=== PATIENT | female | born 1985 | race Hispanic/Latino ===

== ENCOUNTER 2018-03-26 21:25 | Emergency (ER) | payer OTHER ==
[~2018-03-26] VITALS: Ht 152.4 cm; Wt 66.3 kg
[2018-03-26 22:07] LABS: URINE BILIRUBIN - DIPSTICK NEGATIVE (NEGATIVE); URINE BLOOD DIPSTICK NEGATIVE (NEGATIVE); URINE COLOR YELLOW; URINE GLUCOSE - DIPSTICK NEGATIVE (NEGATIVE); URINE KETONE NEGATIVE (NEGATIVE); URINE LEUK ESTERASE NEGATIVE (NEGATIVE); URINE NITRITE - DIPSTICK NEGATIVE (Negative); URINE PH 7.5 (4.5-8.0); URINE PROTEIN - DIPSTICK NEGATIVE (NEG-TRACE); URINE UROBILINOGEN - DIPSTICK 0.2 E.U./dL (0.2)
[2018-03-26 22:09] LABS: URINE CLARITY CLEAR
[2018-03-26 22:20] LABS: HEMOGLOBIN 9.6 g/dl (12.0-16.0); IMMATURE GRANULOCYTES 0.5 % (0.0-5.0); MEAN CELL VOLUME 71.4 fL CALC (80.0-100.0); MEAN CORPUSCULAR HGB 21.4 pG CALC (26.0-32.0); NEUT# 4.48 thou/uL (2.00-7.15); RED BLOOD COUNT 4.48 mill/uL (4.20-5.60); RED CELL DISTRI WIDTH 19.4 % (11.5-15.5)
[2018-03-26 23:08] LABS: ALBUMIN 3.8 g/dL (3.2-5.0); ALKALINE PHOSPHATASE 65 u/l (38-126); AMYLASE 71 u/l (30-110); ANION GAP 13 (6-22 (CALC)); BUN 9 mg/dL (7-17); BUN/CREATININE RATIO 21 (12-20 (CALC)); CARBON DIOXIDE 25 mmol/l (22-30); CHLORIDE 105 mmol/l (95-108); CREATININE 0.4 mg/dL (0.5-1.0); GFR > 60 ML/MIN (>=60 (CALC)); GFR FOR AFR.AMER. > 60 ML/MIN (>=60 (CALC)); LIPASE 58 u/l (23-300); POTASSIUM 4.1 mmol/l (3.5-5.1); SGOT/AST 17 u/l (14-36); SODIUM 140 mmol/l (137-146); TOTAL PROTEIN 6.9 g/dL (6.3-8.2)
[2018-03-26] MEDS ORDERED: FEOSOL45 MG PO (23:45)
[2018-03-26] MEDS ORDERED: ZOFRAN ODT4 MG PO (23:45)
[2018-03-26 23:48] LABS: BETA-HCG, QUANT(RESULT NUMBER) 23072 mIU/mL
[2018-03-27 00:10] VITALS: BP 121/68
== END 2018-03-27 00:10 | disposition home or self-care (01) ==
LOC: ED 21:25
PROVIDERS: Emergency Medicine
DX: O99.011 Anemia complicating pregnancy, first trimester (principal); D64.9 Anemia, unspecified; Z3A.01 Less than 8 weeks gestation of pregnancy; R53.1 Weakness; R10.13 Epigastric pain; R11.0 Nausea

== ENCOUNTER 2018-07-13 23:09 | Emergency (ER) | payer OTHER ==
[~2018-07-13] VITALS: Ht 152.4 cm; Wt 64.0 kg
[~2018-07-13 23:09] MED LIST: FEOSOL45 MG PO; ZOFRAN ODT4 MG PO
[2018-07-14] MEDS ORDERED: ATIVAN0.5 MG PO (00:07)
[2018-07-14 00:37] VITALS: BP 105/70
== END 2018-07-14 00:40 | disposition home or self-care (01) ==
LOC: ED 23:09
DX: F41.9 Anxiety disorder, unspecified (principal); F32.9 Major depressive disorder, single episode, unspecified; Z63.4 Disappearance and death of family member
CPT/HCPCS: J2060

== ENCOUNTER 2019-07-13 | Emergency (ER) | payer OTHER ==
[~2019-07-13] MED LIST changes: +ATIVAN0.5 MG PO
[2019-07-13] MEDS ORDERED: FERRAPLUS 90 PO (09:57)
[2019-07-13 10:24] LABS: HEMATOCRIT 32.5 % (37.0-47.0); HEMOGLOBIN 10.1 g/dl (12.0-16.0); IMMATURE GRANULOCYTES 1.1 % (0.0-5.0); MEAN CORPUSCULAR HGB 24.8 pG CALC (26.0-32.0); MEAN CORPUSCULAR HGB CONC 31.1 g/L CALC (32.0-36.0); NEUT# 4.85 thou/uL (2.00-7.15); RED BLOOD COUNT 4.07 mill/uL (4.20-5.60); RED CELL DISTRI WIDTH 15.5 % (11.5-15.5)
[2019-07-13 10:26] LABS: MEAN CELL VOLUME 79.9 fL CALC (80.0-100.0)
[2019-07-13 10:49] LABS: ALKALINE PHOSPHATASE 87 u/l (38-126); ANION GAP 15 (6-22 (CALC)); BUN 9 mg/dL (7-17); BUN/CREATININE RATIO 20 (12-20 (CALC)); CARBON DIOXIDE 25 mmol/l (22-30); CHLORIDE 104 mmol/l (95-108); CREATININE 0.5 mg/dL (0.5-1.0); ETHYL ALCOHOL 0 mg/dl (0-30); GFR > 60 ML/MIN (>=60 (CALC)); GFR FOR AFR.AMER. > 60 ML/MIN (>=60 (CALC)); LIPASE 48 u/l (23-300); MAGNESIUM 1.9 mg/dL (1.6-2.3); POTASSIUM 3.8 mmol/l (3.5-5.1); SODIUM 140 mmol/l (137-146)
[2019-07-13 10:55] LABS: ALBUMIN 4.6 g/dL (3.2-5.0); BILIRUBIN, TOTAL 0.2 mg/dL (0.0-1.4); SGOT/AST 31 u/l (14-36); TOTAL PROTEIN 8.3 g/dL (6.3-8.2)
[2019-07-13 10:58] LABS: URINE BILIRUBIN - DIPSTICK NEGATIVE (NEGATIVE); URINE BLOOD DIPSTICK NEGATIVE (NEGATIVE); URINE COLOR YELLOW; URINE GLUCOSE - DIPSTICK NEGATIVE (NEGATIVE); URINE KETONE NEGATIVE (NEGATIVE); URINE LEUK ESTERASE NEGATIVE (NEGATIVE); URINE NITRITE - DIPSTICK NEGATIVE (Negative); URINE PH 7.5 (4.5-8.0); URINE PROTEIN - DIPSTICK NEGATIVE (NEG-TRACE); URINE SPECIFIC GRAVITY 1.015; URINE UROBILINOGEN - DIPSTICK 0.2 E.U./dL (0.2)
[2019-07-13 10:59] LABS: BARBITURATES NEGATIVE (NEGATIVE); COCAINE NEGATIVE (NEGATIVE); METHADONE NEGATIVE (NEGATIVE); OXCYCODONE NEGATIVE (NEGATIVE); TETRAHYDROCANNABIONOL NEGATIVE (NEGATIVE); TRICYLIC ANTIDEPRESSANTS NEGATIVE (NEGATIVE)
== END 2019-07-13 11:56 | disposition left against medical advice (07) ==
DX: R20.0 Anesthesia of skin (principal); M79.602 Pain in left arm; R42 Dizziness and giddiness; M54.9 Dorsalgia, unspecified; Z91.19 Patient's noncompliance with other medical treatment and regimen

== ENCOUNTER 2022-05-03 16:00 | Emergency (ER) | payer OTHER ==
[~2022-05-03] VITALS: Ht 152.4 cm; Wt 68.0 kg
[~2022-05-03 16:00] MED LIST changes: +FERRAPLUS 90 PO
[2022-05-03] MEDS ORDERED: VOLTAREN75 MG PO (18:08)
[2022-05-03] MEDS ORDERED: ORPHENADRINE100 MG PO (18:08)
[2022-05-03 18:34] VITALS: BP 108/70
== END 2022-05-03 18:48 | disposition home or self-care (01) ==
LOC: ED 16:00
DX: S39.012A Strain of muscle, fascia and tendon of lower back, initial encounter (principal); X50.0XXA Overexertion from strenuous movement or load, initial encounter; Y93.89 Activity, other specified; Y92.009 Unspecified place in unspecified non-institutional (private) residence as the place of occurrence of the external cause